=== PATIENT | female | born 1960 | race Caucasian/White ===

== ENCOUNTER 2017-09-29 05:35 | Day surgery (SDC) | payer MEDICAID ==
[2017-09-29] VITALS (7 sets, daily range): BP systolic 138–158; BP diastolic 74–87; PULSE 55–68; RESP 15–20; TEMP 97.9–98.3; O2SAT 92–98
[~2017-09-29] VITALS: Ht 170.2 cm; Wt 86.4 kg
[~2017-09-29 05:35] MED LIST: ATEN25TA PO; ATOR40TA16 PO; FLUO20CA12 PO; FURO20TA PO; GABA300C5 PO; OMEP20TA93 PO; POTA10CA PO
[2017-09-29] MEDS ORDERED: LEVO25TA4 PO (06:41)
[2017-09-29] MEDS ORDERED: SODIUM CHLOR 0.9% 1000 ML INJ 1,000 ML IV SCH (07:15)
[2017-09-29] MEDS ORDERED: LIDOCAINE 1%/EPINEPHrine 1:100,000 SOLN 20 ML VIAL ONE (07:46)
[2017-09-29] MEDS ORDERED: MIDAZOLAM HCL 2 MG/2 ML VIAL ONE (08:03)
--- NOTE | 2017-09-29 08:47 | PD.RAD ---
Post CT Procedure Prog Note Pre Procedure Diagnosis: (1) Renal cyst Post Procedure Diagnosis: (1) Renal cyst Procedure Date: Sep 29, 2017 Supervising Radiologist: Marcel Simeon Proceduralist/Assist: [email or web address] Estimated blood loss: none Anesthesia: Conscious Sedation Plan of Activity Patient to Unit: ROPU Patient Condition: Good See PACS Report for procedural detail/treatment Marcel Simeon MD Sep 29, 2017 08:47
--- NOTE | 2017-09-29 16:05 | RADRPT ---
EXAM DATE/TIME: 09/29/2017 08:20 [place] COMPARISON: No previous studies available for comparison. INDICATIONS : Right renal cyst aspiration. SEDATION TIME: MEDICATION(S): 1.) 2 mg midazolam (Versed) IV 2.) 100 mcg fentanyl (Sublimaze) IV DEVICE(S): 1.) 18 gauge Mott blunt needle FLUID: Total volume of 85 cc of clear, yellow fluid was removed. Fluid was sent for laboratory ordered studies. MEDICAL HISTORY : None. SURGICAL HISTORY : Hysterectomy. ENCOUNTER: Initial ACUITY: 1 day PAIN SCORE: 0/10 LOCATION: Right abdomen PROCEDURE: 1.) Conscious sedation with continuous EKG and oximetry monitoring. 2.) EKG and oximetry remained stable throughout the procedure. PROCEDURE : CT guided aspiration of right renal cyst upper pole The risks, benefits and alternatives to the procedure were explained and verbal and written consent w as obtained. Using automated exposure control and adjustment of the mA and/or kV according to patien t size, radiation dose was kept as low as reasonably achievable to obtain optimal diagnostic quality images. The site was prepped in sterile fashion. Full sterile technique was used, including cap, ma sk, sterile gloves and gown and a large sterile sheet. Hand hygiene and 2% chlorhexidine and/or beta dine/alcohol prep was utilized per protocol for cutaneous antisepsis. The skin and subcutaneous tiss ues were infiltrated with local anesthetic solution. DICOM format image data is available electronic ally for review and comparison. On the axial images low-density lesion seen within the upper pole right kidney measuring 19 mm likely cyst. The larger cyst was aspirated more superiorly. CONCLUSION: Uncomplicated aspiration of upper pole right renal cyst as above. Cytology was sent. If this reaccumu lates with negative cytology then sclerosing agent can be given. Marcel Simeon MD on September 29, 2017 at 16:01 Board Certified Radiologist. This report was verified electronically.
== END 2017-09-29 11:15 | disposition home or self-care (01) ==
LOC: HRAD 05:35 → HRIP 05:40 → HRAD 11:15
PROVIDERS: ATTEND Urology
DX: N28.1 Cyst of kidney, acquired (principal)
CPT/HCPCS: 50390; 77012; 88173; 99152; 99153; J2250; J3010; J7030